=== PATIENT | female | born 1960 | race Caucasian/White ===

== ENCOUNTER → 2018-04-26 | Outpatient (CLI) | payer OTHER ==
[~2018-04-26] VITALS: Ht 167.6 cm; Wt 90.7 kg
[~2018-04-26] MED LIST: ASPIR 8181 M1 PO; CALCIUM-MAGNES1 EA10 PO; LASIX20 MG PO; PRESERVISION T1 EACH PO; SYNTHROID137 MCG PO; VITAMIN B-6100 MG PO
== END | disposition home or self-care (01) ==
LOC: AMB 04-23 11:45
DX: Z12.11 Encounter for screening for malignant neoplasm of colon (principal); D12.3 Benign neoplasm of transverse colon; K63.5 Polyp of colon; K64.8 Other hemorrhoids; Z86.010 Personal history of colon polyps; Z79.82 Long term (current) use of aspirin; Z80.0 Family history of malignant neoplasm of digestive organs; R94.5 Abnormal results of liver function studies; J45.909 Unspecified asthma, uncomplicated; E03.9 Hypothyroidism, unspecified; H35.30 Unspecified macular degeneration; Z80.3 Family history of malignant neoplasm of breast; Z82.49 Family history of ischemic heart disease and other diseases of the circulatory system
CPT/HCPCS: 88305